=== PATIENT | female | born 1950 | race Caucasian/White ===

== ENCOUNTER 2019-07-09 09:24 | Observation (INO) | payer OTHER ==
[2019-07-07 11:58] LABS: APPEARANCE,URINE Clear (CLEAR); BILIRUBIN,URINE Small (NEGATIVE); COLOR,URINE Dark Yellow (YELLOW); GLUCOSE, URINE (UA) Negative (NEGATIVE); KETONES,URINE Trace mg/dL (NEGATIVE); LEUKOCYTE ESTERASE ,URINE Small (NEGATIVE); NITRATE,URINE Negative (NEGATIVE); OCCULT BLOOD,URINE Negative (NEGATIVE); PH,URINE 6.5 (5.0-8.0); PROTEIN,URINE Negative (NEGATIVE)
[2019-07-07 11:59] VITALS: BP 114/68
[2019-07-07 12:10] LABS: INR 0.95 (0.85-1.15)
[2019-07-07 12:17] LABS: BACTERIA,URINE Rare /HPF (None Seen); MUCUS,URINE Few LPF (None Seen); RBC,URINE 0-1 /HPF (0-1); SQUAMOUS EPITHELIAL CELL,UR Rare /HPF (0-2)
--- NOTE | 2019-07-08 15:40 | NUR ---
RE: ABNORMAL URINALYSIS REPORTED URINE RESULTS TO Suzan WAGNER, RECEIVED ORDERS FOR GENTAMICIN 240MG IV TO BE GIVEN IN OR HOLDING.
[~2019-07-09] VITALS: Ht 157.5 cm; Wt 78.3 kg
[2019-07-09] VITALS (19 sets, daily range): BP systolic 111–132; BP diastolic 63–80
[2019-07-09] MEDS: CEFAZOLIN SODIUM 1 GM VIAL IVP SCH ×3 (06:00→20:57)
[~2019-07-09 09:24] MED LIST: GENTAMICIN SULFATE 240 MG in SODIUM CHLORIDE 0.9% 100 ML IV SCH
[2019-07-09] MEDS ORDERED: LACTATED RINGERS 1000ML 1,000 ML IV ONE (10:22)
[2019-07-09] MEDS ORDERED: METOCLOPRAMIDE 10 MG/2 ML VIAL ONE (11:06)
[2019-07-09] MEDS ORDERED: ACETAMINOPHEN EXTRA STRENGTH 500 MG TABLET ONE (11:07)
[2019-07-09] MEDS ORDERED: CELECOXIB 200 MG CAP ONE (11:07)
[2019-07-09] MEDS ORDERED: KETOROLAC TROMETHAMINE 15MG/ML ONE (11:07)
--- NOTE | 2019-07-09 11:22 | NUR ---
PAIN NO PAIN AT REST ,RIGHT KNEE PAIN WHEN AMBULATING Addendum: 07/09/19 at 1124 by CHLOE CUI RN RN Amended: Links added.
[2019-07-09] MEDS ORDERED: LISI1TAB32 PO (11:34)
[2019-07-09] MEDS ORDERED: ALLO100T PO (11:35)
[2019-07-09] MEDS ORDERED: PRAV10TA39 PO (11:36)
[2019-07-09] MEDS ORDERED: TRANEXAMIC ACID 1000MG/10ML ONE ×2 (13:45→16:42)
[2019-07-09] MEDS ORDERED: CEFAZOLIN SODIUM 1 GM VIAL ONE ×2 (13:45→13:48)
[2019-07-09] MEDS ORDERED: DEXAMETHASONE SOD PHOSPHATE 10MG/ML 1ML VIAL ONE (13:53)
[2019-07-09] MEDS ORDERED: ONDANSETRON HCL 4 MG/2 ML VIAL ONE (13:53)
[2019-07-09] MEDS ORDERED: LIDOCAINE PF 2% 5ML ABBOJECT ONE (13:53)
[2019-07-09] MEDS ORDERED: PROPOFOL 10 MG/ML 20ML VIAL IV ONE (13:53)
[2019-07-09] MEDS ORDERED: FENTANYL CITRATE PF 50 MCG/1 ML 2ML VIAL ONE ×2 (13:54→15:26)
[2019-07-09] MEDS ORDERED: MIDAZOLAM HCL 1 MG/ML 2ML VIAL ONE (13:54)
[2019-07-09] MEDS ORDERED: ROCURONIUM 10MG/1ML SYR 10 MG/ML ML ONE (13:54)
[2019-07-09] MEDS ORDERED: ROPIVACAINE 0.5% 5MG/ML 30ML IJ ONE (14:32)
[2019-07-09] MEDS ORDERED: EPHEDRINE SULFATE 50 MG/ML AMPULE ONE (14:33)
[2019-07-09] MEDS: SODIUM CHLORIDE 0.9% 1000ML 1,000 ML IV SCH (16:24)
[2019-07-09] MEDS ORDERED: POTASSIUM CHLORIDE 20 MEQ ERTAB PO PRN (16:30)
[2019-07-09] MEDS ORDERED: POTASSIUM CHLORIDE 10% ELIXIR 20 MEQ/15 ML UDCUP PO PRN (16:30)
[2019-07-09] MEDS ORDERED: CALCIUM CARBONATE 500 MG TABLET PO PRN (16:30)
[2019-07-09] MEDS ORDERED: ONDANSETRON HCL 4 MG/2 ML VIAL IVP PRN (16:30)
[2019-07-09] MEDS ORDERED: KETOROLAC TROMETHAMINE 15MG/ML IV PRN (16:30)
[2019-07-09] MEDS ORDERED: TEMAZEPAM 15 MG CAPSULE PO PRN (16:30)
[2019-07-09] MEDS ORDERED: TRAMADOL HCL 50 MG TABLET PO PRN (16:30)
[2019-07-09] MEDS ORDERED: FERROUS FUMARATE 324 MG TABLET PO PRN (16:30)
[2019-07-09] MEDS ORDERED: DiphenhydrAMINE HCL 50 MG/ML VIAL IVP PRN (16:30)
[2019-07-09] MEDS ORDERED: POTASSIUM CHLORIDE 20MEQ/100ML 100 ML IV PRN (16:30)
[2019-07-09] MEDS ORDERED: OXYCODONE HCL 5 MG TAB PO PRN ×2 (16:30)
[2019-07-09] MEDS: ACETAMINOPHEN EXTRA STRENGTH 500 MG TABLET PO SCH (16:30)
[2019-07-09] MEDS ORDERED: LIDOCAINE HCL-MPF 1% 2ML VIAL IV PRN (16:30)
[2019-07-09] MEDS ORDERED: NEOSTIGMINE 5MG/5ML SYR IV ONE (16:46)
[2019-07-09] MEDS ORDERED: GLYCOPYRROLATE 1 MG/5 ML SYRINGE ONE (16:46)
[2019-07-09] MEDS ORDERED: MORPHINE SULFATE 4 MG/1ML SYG ONE (18:04)
[2019-07-09] MEDS: CELECOXIB 200 MG CAP PO SCH (20:27)
[2019-07-09] MEDS: ASPIRIN 81MG TAB.CHEW PO SCH (20:27)
[2019-07-09] MEDS: PREGABALIN 25 MG CAP PO SCH (20:28)
[2019-07-09] MEDS: FAMOTIDINE 20MG TAB 20 MG TAB PO SCH (20:29)
[2019-07-10] MEDS: ACETAMINOPHEN EXTRA STRENGTH 500 MG TABLET PO SCH ×2 (00:23→08:27)
[2019-07-10] MEDS: SODIUM CHLORIDE 0.9% 1000ML 1,000 ML IV SCH (02:24)
[2019-07-10 03:22] VITALS: BP 102/58
[2019-07-10 03:56] LABS: HEMATOCRIT 32.9 % (36-48); MEAN CORPUSCULAR HEMOGLOBIN 30.5 pg (27.0-33.0); MEAN CORPUSCULAR HGB CONC 33.1 g/dL (32.0-36.0); MEAN CORPUSCULAR VOLUME 92.2 fL (79-99); PLATELET COUNT (AUTO) 212 K/uL (130-400); RED BLOOD CELL COUNT(AUTO) 3.57 MIL/uL (4.00-5.50); RED CELL DISTRIBUTION WIDTH 13.5 % (11.0-15.5); WHITE BLOOD COUNT (AUTO) 10.1 K/uL (4.8-10.8)
[2019-07-10 04:08] LABS: CREATININE 0.7 mg/dL (0.5-1.5); POTASSIUM 4.3 mmol/L (3.5-5.1)
[2019-07-10] MEDS: CEFAZOLIN SODIUM 1 GM VIAL IVP SCH (04:59)
[2019-07-10 08:00] VITALS: BP 117/66
[2019-07-10] MEDS: PREGABALIN 25 MG CAP PO SCH (08:25)
[2019-07-10] MEDS: CELECOXIB 200 MG CAP PO SCH (08:26)
[2019-07-10] MEDS: ASPIRIN 81MG TAB.CHEW PO SCH (08:26)
[2019-07-10] MEDS: FAMOTIDINE 20MG TAB 20 MG TAB PO SCH (08:26)
[2019-07-10] MEDS ORDERED: LISINOPRIL 10 MG TABLET PO SCH (09:00)
[2019-07-10] MEDS ORDERED: LEVOFLOXACIN 500 MG TABLET PO SCH (09:00)
[2019-07-10] MEDS ORDERED: Pravastatin Sodium 10 MG PO SCH (09:00)
[2019-07-10] MEDS ORDERED: POLYETHYLENE GLYCOL 3350 17 GM POWD.PACK PO SCH (09:00)
[2019-07-10] MEDS ORDERED: ALLOPURINOL 100 MG TABLET PO SCH (09:00)
[2019-07-10 11:10] VITALS: BP 101/61
--- NOTE | 2019-07-10 12:23 | NUR ---
INITIAL Patient lives with spouse, Ashish Felix, [phone]. No home services. DME: [facility], shower chair. Patient was able to complete ADL's independently prior to being hospitalized. Patient does not drive. PCP is Dr. Kati Arevalo. Pharmacy is [facility] located on [address] [facility] in [place]. DCP is home with Addendum: 07/10/19 at 1225 by DAXA PEREZ SS Amended: Links added.
--- NOTE | 2019-07-10 12:25 | NUR ---
Home Health and DME MD order for home health with [facility]. [facility] completed and in chart. MD order for standard walker and 3 in 1 chair. Referral sent to [facility] and [facility]. Pending acceptance.
[2019-07-10] MEDS ORDERED: HYDR-4457 PO (13:33)
[2019-07-10] MEDS ORDERED: ASPI-1005 PO (13:33)
[2019-07-10] MEDS ORDERED: MACR100 PO (13:33)
--- NOTE | 2019-07-10 16:18 | NUR ---
[id number] patient signed JAMES Letter(2 female family members at bedside), I faxed JAMES Letter to [phone] and placed in chart under consent tab
--- NOTE | 2019-07-10 16:20 | NUR ---
INSTRUCTIONS DISCHARGE INSTRUCTIONS GIVEN TO PATIENT AND FAMILY USING TEACH BACK. IV REMOVED WITH TIP INTACT. DIRECT PRESSURE APPLIED UNTIL BLEEDING CONTROLLED THEN SITE COVERED WITH GAUZE AND SECURED WITH TAPE. F/U APPOINTMENT MADE. REPORT CALLED IN TO [facility]. THEY WILL SEE THE PATIENT ON SUNDAY. NEW PRESCRIPTIONS PLACED IN PACKET ALONG WITH ALL PRINTED INFORMATION AND MD INSTRUCTIONS. NO QUESTIONS OR CONCERNS VOICED.
--- NOTE | 2019-07-10 16:22 | NUR ---
CM NOTE PATIENT APPROVED FOR [facility], PRIMARY NURSE, NEISHA MASON, MADE AWARE.
[2019-07-12] MEDS ORDERED: BISACODYL 10 MG SUPP.RECT RC PRN (16:30)
== END 2019-07-10 17:10 | disposition home health service (06) ==
LOC: DAH 09:24 → DAHIP 09:25 → 4AH 17:22
PROVIDERS: ADMIT Orthopaedic Surgery; ATTEND Orthopaedic Surgery
DX: M17.11 Unilateral primary osteoarthritis, right knee (principal); I10 Essential (primary) hypertension; M06.9 Rheumatoid arthritis, unspecified; I70.0 Atherosclerosis of aorta; Z90.49 Acquired absence of other specified parts of digestive tract; Z98.51 Tubal ligation status; Z87.891 Personal history of nicotine dependence
CPT/HCPCS: 27447; 36415 ×2; 80048; 81001; 85027; 85610; 87641; 96365; 96375; 96376; 97039; 97116 ×2; 97161; 97530 ×2; A4213; A4215; A4221; A4222; A4223; A4600; A4649 ×3; A4663; A4930; A9272; C1776; G0378 ×15; G8978; G8979; G8980; G8981; G8982; G8983; J0690 ×5; J1100; J1580; J1885 ×2; J2001; J2250; J2270; J2405; J2704; J2710; J2765; J2795; J3010 ×2; J3490 ×4; J7120 ×2; 96374

== ENCOUNTER 2020-01-05 16:27 | Inpatient (IN) | payer OTHER ==
[~2020-01-05] VITALS: Ht 157.5 cm; Wt 80.9 kg
[~2020-01-05 16:27] MED LIST changes: +ALLO100T PO; +ASPI-1005 PO; -GENTAMICIN SULFATE 240 MG in SODIUM CHLORIDE 0.9% 100 ML IV SCH; +HYDR-4457 PO; +LISI1TAB32 PO; +MACR100 PO; +PRAV10TA39 PO
[2020-01-05] MEDS: ENOXAPARIN SODIUM 30 MG/0.3 ML SQ SCH (17:30)
[2020-01-05] MEDS ORDERED: MORPHINE SULFATE 2 MG/ML 1ML SYG ONE (17:31)
[2020-01-05] MEDS ORDERED: ONDANSETRON HCL 4 MG/2 ML VIAL ONE (17:31)
[2020-01-05 17:34] LABS: BASOPHILS % (AUTO) 0.5 % (0.0-5.0); EOSINOPHILS % (AUTO) 1.8 % (0.0-8.0); HEMATOCRIT 31.8 % (36-48); MEAN CORPUSCULAR HEMOGLOBIN 28.1 pg (27.0-33.0); MEAN CORPUSCULAR HGB CONC 31.8 g/dL (32.0-36.0); MEAN CORPUSCULAR VOLUME 88.6 fL (79-99); MONOCYTES % (AUTO) 7.2 % (3.0-13.0); PLATELET COUNT (AUTO) 318 K/uL (130-400); RED BLOOD CELL COUNT(AUTO) 3.59 MIL/uL (4.00-5.50); RED CELL DISTRIBUTION WIDTH 15.2 % (11.0-15.5); WHITE BLOOD COUNT (AUTO) 8.2 K/uL (4.8-10.8)
[2020-01-05 17:45] LABS: CREATININE 0.7 mg/dL (0.5-1.5); POTASSIUM 4.2 mmol/L (3.5-5.1)
[2020-01-05] MEDS ORDERED: ONDANSETRON HCL 4 MG/2 ML VIAL IVP PRN (17:45)
[2020-01-05] MEDS ORDERED: ACETAMINOPHEN 325 MG TAB PO PRN (17:45)
[2020-01-05] MEDS ORDERED: MORPHINE SULFATE 2 MG/ML 1ML SYG IVP PRN (17:45)
[2020-01-05] MEDS ORDERED: SODIUM CHLORIDE 0.9% 1000ML 1,000 ML IV SCH (17:45)
[2020-01-05] MEDS ORDERED: HYDROCODONE/ACETAMINOPHEN 5/325 MG TAB PO PRN (17:45)
[2020-01-05 17:47] LABS: INR 0.92 (0.85-1.15); PARTIAL THROMBOPLASTIN TIME 28.2 SEC (26.3-35.5)
[2020-01-05 17:49] LABS: ALBUMIN 3.2 g/dL (3.5-5.0); BILIRUBIN,TOTAL 0.5 mg/dL (0.2-1.0); TOTAL PROTEIN, SERUM 6.8 g/dL (6.0-8.3)
[2020-01-05] MEDS ORDERED: ALLOPURINOL 100 MG TABLET PO SCH (18:00)
[2020-01-05 18:03] LABS: APPEARANCE,URINE SL CLOUDY (CLEAR); BILIRUBIN,URINE MODERATE (NEGATIVE); COLOR,URINE YELLOW (YELLOW); GLUCOSE, URINE (UA) NEGATIVE (NEGATIVE); KETONES,URINE 15 mg/dL (NEGATIVE); LEUKOCYTE ESTERASE ,URINE TRACE (NEGATIVE); NITRATE,URINE NEGATIVE (NEGATIVE); OCCULT BLOOD,URINE NEGATIVE (NEGATIVE); PROTEIN,URINE 30 mg/dL (NEGATIVE)
[2020-01-05 18:14] LABS: BACTERIA,URINE Few /HPF (None Seen); RBC,URINE 0-1 /HPF (0-1)
[2020-01-05 18:15] LABS: MUCUS,URINE Moderate LPF (None Seen); SQUAMOUS EPITHELIAL CELL,UR Few /HPF (0-2)
[2020-01-05] MEDS ORDERED: ENOXAPARIN SODIUM 30 MG/0.3 ML SQ ONE (21:10)
[2020-01-05 23:20] VITALS: BP 128/77
[2020-01-06] MEDS: HYDROCODONE/ACETAMINOPHEN 5/325 MG TAB PO PRN ×2 (00:07→11:01)
[2020-01-06 03:40] VITALS: BP 119/77
[2020-01-06 03:43] LABS: HEMATOCRIT 27.8 % (36-48); MEAN CORPUSCULAR HEMOGLOBIN 28.4 pg (27.0-33.0); MEAN CORPUSCULAR VOLUME 88.8 fL (79-99); RED BLOOD CELL COUNT(AUTO) 3.13 MIL/uL (4.00-5.50); RED CELL DISTRIBUTION WIDTH 15.1 % (11.0-15.5); WHITE BLOOD COUNT (AUTO) 6.8 K/uL (4.8-10.8)
[2020-01-06 03:57] LABS: INR 0.93 (0.85-1.15); PARTIAL THROMBOPLASTIN TIME 31.8 SEC (26.3-35.5); PROTHROMBIN TIME 10.1 SEC (9.6-11.6)
[2020-01-06 04:03] LABS: ALBUMIN 2.7 g/dL (3.5-5.0); BILIRUBIN,TOTAL 0.4 mg/dL (0.2-1.0); CREATININE 0.7 mg/dL (0.5-1.5); POTASSIUM 3.8 mmol/L (3.5-5.1); TOTAL PROTEIN, SERUM 6.1 g/dL (6.0-8.3)
[2020-01-06] MEDS: CEFTRIAXONE SODIUM 1 GM IVP SCH ×2 (05:04→17:50)
[2020-01-06 08:41] VITALS: BP 125/73
[2020-01-06] MEDS: HYDROCHLOROTHIAZIDE 25 MG TABLET PO SCH (10:52)
[2020-01-06] MEDS: PANTOPRAZOLE SODIUM 40 MG TABLET.DR PO SCH (10:54)
[2020-01-06] MEDS: ALLOPURINOL 100 MG TABLET PO SCH (10:54)
[2020-01-06] MEDS: LISINOPRIL 20 MG TABLET PO SCH (10:55)
[2020-01-06] MEDS: ENOXAPARIN SODIUM 30 MG/0.3 ML SQ SCH (10:56)
[2020-01-06 11:46] VITALS: BP 116/61
[2020-01-06 16:46] VITALS: BP 119/72
[2020-01-06 20:08] VITALS: BP 128/75
[2020-01-07] VITALS (22 sets, daily range): BP systolic 105–152; BP diastolic 63–89
[2020-01-07 04:38] LABS: CREATININE 0.6 mg/dL (0.5-1.5); POTASSIUM 3.7 mmol/L (3.5-5.1)
[2020-01-07 04:59] LABS: HEMATOCRIT 27.9 % (36-48); MEAN CORPUSCULAR HEMOGLOBIN 28.3 pg (27.0-33.0); MEAN CORPUSCULAR HGB CONC 31.9 g/dL (32.0-36.0); MEAN CORPUSCULAR VOLUME 88.6 fL (79-99); PLATELET COUNT (AUTO) 324 K/uL (130-400); RED BLOOD CELL COUNT(AUTO) 3.15 MIL/uL (4.00-5.50); WHITE BLOOD COUNT (AUTO) 6.4 K/uL (4.8-10.8)
[2020-01-07 05:17] LABS: BAND NEUTROPHILS % (MANUAL) 5 % (0-2); EOSINOPHILS % (MANUAL) 1 % (1-6); LYMPHOCYTES % (MANUAL) 26 % (22-44); MAN.DIFF COMMENT-IMPRESSION MANUAL DIFFERENTIAL; MONOCYTES % (MANUAL) 1 % (2-9); PLATELET MORPHOLOGY COMMENT ADEQUATE; REACTIVE LYMPHOCYTES 1 % (0-0); SEGMENTED NEUTROPHILS % 66 % (40-70)
[2020-01-07] MEDS: CEFTRIAXONE SODIUM 1 GM IVP SCH ×2 (06:25→17:00)
[2020-01-07] MEDS: PANTOPRAZOLE SODIUM 40 MG TABLET.DR PO SCH (09:00)
[2020-01-07] MEDS: LISINOPRIL 20 MG TABLET PO SCH (09:00)
[2020-01-07] MEDS: ALLOPURINOL 100 MG TABLET PO SCH (09:00)
[2020-01-07] MEDS: HYDROCHLOROTHIAZIDE 25 MG TABLET PO SCH (09:00)
[2020-01-07] MEDS ORDERED: TRANEXAMIC ACID 1000MG/10ML ONE ×2 (16:52→21:21)
[2020-01-07] MEDS ORDERED: LIDOCAINE PF 2% 5ML ABBOJECT ONE (16:59)
[2020-01-07] MEDS ORDERED: PROPOFOL 10 MG/ML 20ML VIAL IV ONE (16:59)
[2020-01-07] MEDS ORDERED: KETAMINE 50MG/ML SYRINGE 50 MG/ML DISP.SYRIN IV ONE (17:01)
[2020-01-07] MEDS ORDERED: LIDOCAINE HCL 1% 20 ML VIAL ONE (17:01)
[2020-01-07] MEDS ORDERED: SUCCINYLCHOLINE CHLORIDE 20 MG/ML 10 ML VIAL ONE (17:02)
[2020-01-07] MEDS ORDERED: ROPIVACAINE 0.5% 5MG/ML 30ML IJ ONE (17:05)
[2020-01-07] MEDS: CEFAZOLIN SODIUM 1 GM VIAL ONE ×3 (17:10→20:00)
[2020-01-07] MEDS ORDERED: FENTANYL CITRATE PF 50 MCG/1 ML 2ML VIAL ONE (18:29)
[2020-01-07] MEDS ORDERED: PHENYLEPHRINE HCL 10 MG/ML 1ML VIAL IV ONE (18:46)
[2020-01-07] MEDS ORDERED: ROCURONIUM 10MG/1ML SYR 10 MG/ML ML ONE (19:27)
[2020-01-07] MEDS ORDERED: NEOSTIGMINE 5MG/5ML SYR IV ONE (19:56)
[2020-01-07] MEDS ORDERED: GLYCOPYRROLATE 1 MG/5 ML SYRINGE ONE (19:56)
[2020-01-07] MEDS: SODIUM CHLORIDE 0.9% 1000ML 1,000 ML IV SCH ×2 (20:25→21:00)
[2020-01-07] MEDS ORDERED: LIDOCAINE HCL-MPF 1% 2ML VIAL IV PRN (20:30)
[2020-01-07] MEDS ORDERED: POTASSIUM CHLORIDE 10% ELIXIR 20 MEQ/15 ML UDCUP PO PRN (20:30)
[2020-01-07] MEDS ORDERED: POTASSIUM CHLORIDE 20MEQ/100ML 100 ML IV PRN (20:30)
[2020-01-07] MEDS: ACETAMINOPHEN EXTRA STRENGTH 500 MG TABLET PO SCH (20:30)
[2020-01-07] MEDS ORDERED: DiphenhydrAMINE HCL 50 MG/ML VIAL IVP PRN (20:30)
[2020-01-07] MEDS ORDERED: TEMAZEPAM 15 MG CAPSULE PO PRN (20:30)
[2020-01-07] MEDS ORDERED: CALCIUM CARBONATE 500 MG TABLET PO PRN (20:30)
[2020-01-07] MEDS ORDERED: TRAMADOL HCL 50 MG TABLET PO PRN (20:30)
[2020-01-07] MEDS ORDERED: ONDANSETRON HCL 4 MG/2 ML VIAL IVP PRN (20:30)
[2020-01-07] MEDS ORDERED: OXYCODONE HCL 5 MG TAB PO PRN (20:30)
[2020-01-07] MEDS ORDERED: ALBUTEROL INHALER 90MCG/INH IH ONE (20:38)
[2020-01-07] MEDS ORDERED: PHARMACY COMMUNICATION MISC SCH (20:45)
[2020-01-07] MEDS ORDERED: METOCLOPRAMIDE 10 MG/2 ML VIAL ONE (20:57)
[2020-01-07] MEDS: FAMOTIDINE 20MG TAB 20 MG TAB PO SCH (21:00)
[2020-01-07] MEDS ORDERED: MEPERIDINE-PF 25 MG/ML SYG ONE (21:15)
[2020-01-07] MEDS: ONDANSETRON HCL 4 MG/2 ML VIAL IVP SCH (21:33)
[2020-01-07] MEDS ORDERED: FAMOTIDINE/PF 20 MG/2 ML VIAL IV ONE (21:41)
[2020-01-07] MEDS: KETOROLAC TROMETHAMINE 15MG/ML IM SCH (22:20)
[2020-01-08] VITALS (9 sets, daily range): BP systolic 98–136; BP diastolic 62–80
[2020-01-08] MEDS: OXYCODONE HCL 5 MG TAB PO PRN ×3 (00:01→20:45)
[2020-01-08] MEDS: CEFAZOLIN SODIUM 1 GM VIAL IVP SCH ×2 (03:27→09:58)
[2020-01-08] MEDS: ACETAMINOPHEN EXTRA STRENGTH 500 MG TABLET PO SCH ×3 (03:30→20:30)
[2020-01-08 03:55] LABS: BASOPHILS % (AUTO) 0.3 % (0.0-5.0); EOSINOPHILS % (AUTO) 0.1 % (0.0-8.0); HEMATOCRIT 27.4 % (36-48); LYMPHOCYTES % (AUTO) 10.7 % (21.0-51.0); MEAN CORPUSCULAR HEMOGLOBIN 27.9 pg (27.0-33.0); MEAN CORPUSCULAR HGB CONC 31.4 g/dL (32.0-36.0); MONOCYTES % (AUTO) 7.8 % (3.0-13.0); NEUTROPHILS % (AUTO) 79.7 % (40.0-77.0); PLATELET COUNT (AUTO) 311 K/uL (130-400); RED BLOOD CELL COUNT(AUTO) 3.08 MIL/uL (4.00-5.50); RED CELL DISTRIBUTION WIDTH 15.2 % (11.0-15.5); WHITE BLOOD COUNT (AUTO) 10.1 K/uL (4.8-10.8)
[2020-01-08 04:08] LABS: CREATININE 0.7 mg/dL (0.5-1.5); POTASSIUM 4.1 mmol/L (3.5-5.1)
[2020-01-08] MEDS: SODIUM CHLORIDE 0.9% 1000ML 1,000 ML IV SCH ×2 (06:25→16:25)
[2020-01-08] MEDS: KETOROLAC TROMETHAMINE 15MG/ML IV PRN ×2 (07:23→13:31)
[2020-01-08] MEDS: FAMOTIDINE 20MG TAB 20 MG TAB PO SCH ×2 (10:10→20:44)
[2020-01-08] MEDS: LISINOPRIL 20 MG TABLET PO SCH (10:11)
[2020-01-08] MEDS: APIXABAN 2.5 MG TABLET PO SCH ×2 (10:11→20:44)
[2020-01-08] MEDS: ALLOPURINOL 100 MG TABLET PO SCH (10:11)
[2020-01-08] MEDS: HYDROCHLOROTHIAZIDE 25 MG TABLET PO SCH (10:11)
[2020-01-08] MEDS: CELECOXIB 200 MG CAP PO SCH ×3 (10:12→20:44)
[2020-01-08] MEDS: POLYETHYLENE GLYCOL 3350 17 GM POWD.PACK PO SCH (10:12)
--- NOTE | 2020-01-08 13:08 | NUR ---
INITIAL ASSESSMENT- SPOKE WITH PT AND MARTHA SPOKE W PATIENT AT BEDSIDE- STATES LIVES W/ SPOUSE MARAL & DAUGHTER SAMIR STATES DAUGHTER HELPS HER AND PROVIDES TRANSPORT; HAS SHOWER CHAIR AND WALKER. NO CURRENT PROVIDER NOR HOME HEALTH. CALLED TO DAUGHTER SAMIR AND CONFIRMED INFORMATION ADVISED DTR THAT PTx RECOMMENDED SNF; PT DECLINE,D FAMILY DECLINING WELL. PATIENT Addendum: 01/08/20 at 1347 by RYAN JETER RN CM Amended: Links added.
[2020-01-08] MEDS: ONDANSETRON HCL 4 MG/2 ML VIAL IVP SCH (21:15)
[2020-01-08] MEDS: KETOROLAC TROMETHAMINE 15MG/ML IM SCH (22:15)
[2020-01-09 00:29] VITALS: BP 94/63
[2020-01-09] MEDS: ACETAMINOPHEN EXTRA STRENGTH 500 MG TABLET PO SCH ×3 (04:13→20:54)
[2020-01-09 04:35] VITALS: BP 105/66
[2020-01-09 07:08] LABS: BASOPHILS % (AUTO) 0.6 % (0.0-5.0); EOSINOPHILS % (AUTO) 3.5 % (0.0-8.0); HEMATOCRIT 24.7 % (36-48); LYMPHOCYTES % (AUTO) 12.9 % (21.0-51.0); MEAN CORPUSCULAR HEMOGLOBIN 27.9 pg (27.0-33.0); MEAN CORPUSCULAR HGB CONC 31.6 g/dL (32.0-36.0); MEAN CORPUSCULAR VOLUME 88.2 fL (79-99); MONOCYTES % (AUTO) 8.4 % (3.0-13.0); NEUTROPHILS % (AUTO) 73.6 % (40.0-77.0); PLATELET COUNT (AUTO) 298 K/uL (130-400); WHITE BLOOD COUNT (AUTO) 8.6 K/uL (4.8-10.8)
[2020-01-09 07:19] LABS: CREATININE 0.7 mg/dL (0.5-1.5); POTASSIUM 3.6 mmol/L (3.5-5.1)
[2020-01-09 08:34] VITALS: BP 107/62
[2020-01-09] MEDS: LISINOPRIL 20 MG TABLET PO SCH (09:00)
[2020-01-09] MEDS: HYDROCHLOROTHIAZIDE 25 MG TABLET PO SCH (09:00)
[2020-01-09] MEDS: POLYETHYLENE GLYCOL 3350 17 GM POWD.PACK PO SCH (09:18)
[2020-01-09] MEDS: APIXABAN 2.5 MG TABLET PO SCH ×2 (09:19→20:54)
[2020-01-09] MEDS: FAMOTIDINE 20MG TAB 20 MG TAB PO SCH ×2 (09:19→20:53)
[2020-01-09] MEDS: ALLOPURINOL 100 MG TABLET PO SCH (09:19)
[2020-01-09] MEDS: CELECOXIB 200 MG CAP PO SCH ×2 (09:20→20:54)
[2020-01-09] MEDS: OXYCODONE HCL 5 MG TAB PO PRN ×2 (09:21→16:26)
[2020-01-09 11:25] VITALS: BP 103/49
--- NOTE | 2020-01-09 14:00 | NUR ---
HOME W/ [facility] DISCUSSED W DR. WAGNER [facility] TRANSPORT- STATES PATIENT COULD BE TRANSPORTED BY PRIVATE VEHICLE WHEN READY TO DISCHARGE. SPOEK TO DTR [facility]IR [facility]- DOES NOT WANT. PLAN ROBBIE Rodriguez DC TOMORROW Addendum: 01/09/20 at 1944 by RYAN JETER RN CM Amended: Links added.
[2020-01-09] MEDS ORDERED: SODIUM CHLORIDE 0.9% 250 ML IV ONE (15:08)
[2020-01-09] MEDS: FERROUS FUMARATE 324 MG TABLET PO PRN (16:13)
[2020-01-09 17:27] VITALS: BP 115/63
[2020-01-09 20:12] VITALS: BP 123/76
--- NOTE | 2020-01-09 22:00 | NUR ---
NOTE TRIED TO WEAN OFF O2. AFTER A FEW MINUTE SON ROOM AIR CHECKED O2 SAT AND IT WAS 88%. PLACED BACK ON O2 2L N/C. PATIENT DENIES SOB OR DIFFICULTIES WITH BREATHING. SAT ON O2 98%.
[2020-01-10 00:12] VITALS: BP 132/69
[2020-01-10] MEDS: ACETAMINOPHEN EXTRA STRENGTH 500 MG TABLET PO SCH ×3 (03:40→21:11)
[2020-01-10 04:12] VITALS: BP 117/60
[2020-01-10 05:18] LABS: BASOPHILS % (AUTO) 0.6 % (0.0-5.0); EOSINOPHILS % (AUTO) 5.5 % (0.0-8.0); LYMPHOCYTES % (AUTO) 19.7 % (21.0-51.0); MEAN CORPUSCULAR HEMOGLOBIN 27.6 pg (27.0-33.0); MEAN CORPUSCULAR HGB CONC 31.9 g/dL (32.0-36.0); MEAN CORPUSCULAR VOLUME 86.4 fL (79-99); MONOCYTES % (AUTO) 11.4 % (3.0-13.0); NEUTROPHILS % (AUTO) 60.2 % (40.0-77.0); NUCLEATED RED BLOOD CELLS 0.3 % (0.0-0.19); PLATELET COUNT (AUTO) 314 K/uL (130-400); RED BLOOD CELL COUNT(AUTO) 3.01 MIL/uL (4.00-5.50); RED CELL DISTRIBUTION WIDTH 16.2 % (11.0-15.5); WHITE BLOOD COUNT (AUTO) 6.9 K/uL (4.8-10.8)
[2020-01-10 05:39] LABS: CREATININE 0.7 mg/dL (0.5-1.5); POTASSIUM 3.5 mmol/L (3.5-5.1)
[2020-01-10] MEDS: FAMOTIDINE 20MG TAB 20 MG TAB PO SCH ×2 (08:12→21:10)
[2020-01-10] MEDS: CELECOXIB 200 MG CAP PO SCH ×2 (08:12→21:10)
[2020-01-10] MEDS: FERROUS FUMARATE 324 MG TABLET PO PRN (08:13)
[2020-01-10] MEDS: APIXABAN 2.5 MG TABLET PO SCH (08:13)
[2020-01-10] MEDS: POLYETHYLENE GLYCOL 3350 17 GM POWD.PACK PO SCH (08:13)
[2020-01-10] MEDS: POTASSIUM CHLORIDE 20 MEQ ERTAB PO PRN ×2 (08:13→15:47)
[2020-01-10] MEDS: OXYCODONE HCL 5 MG TAB PO PRN (08:14)
[2020-01-10 08:26] VITALS: BP 123/71
[2020-01-10] MEDS: ALLOPURINOL 100 MG TABLET PO SCH (08:31)
[2020-01-10] MEDS: HYDROCHLOROTHIAZIDE 25 MG TABLET PO SCH (09:00)
[2020-01-10] MEDS: LISINOPRIL 20 MG TABLET PO SCH (09:00)
[2020-01-10] MEDS ORDERED: BISACODYL 10 MG SUPP.RECT RC ONE (10:28)
[2020-01-10 11:37] VITALS: BP 112/63
[2020-01-10 16:21] VITALS: BP 111/65
--- NOTE | 2020-01-10 16:39 | NUR ---
i have called dr ramirez with results of ct scan--small right pleural effusion and multifocal pneumonia; i have also given pt 2 doses of 20 meq kcl per potassium protocol for a lv 3.5; will cont to monitor
[2020-01-10] MEDS ORDERED: MEROPENEM 500 MG VIAL IVP SCH (16:45)
[2020-01-10] MEDS ORDERED: LINEZOLID 600 MG/ISO-OSM 300 ML IV SCH (16:45)
--- NOTE | 2020-01-10 17:16 | NUR ---
i spoke to dr warren in regards to meeting [facility] protocol and he stated that if pt did not meet criteria to receive then have the hospitalist take care of the abx; i attempted to call AJ and got his voice mail and left a message; pending call back
[2020-01-10] MEDS ORDERED: CEFTRIAXONE SODIUM 1 GM IVP SCH (17:30)
[2020-01-10] MEDS: AZITHROMYCIN 500MG+NS 250ML 250 ML IV SCH (18:14)
[2020-01-10 20:08] VITALS: BP 125/69
[2020-01-10] MEDS ORDERED: BISACODYL 10 MG SUPP.RECT RC PRN (20:30)
[2020-01-10] MEDS: CEFEPIME HCL 2 GM VIAL IVP SCH (22:45)
[2020-01-11 00:08] VITALS: BP 118/63
[2020-01-11 04:08] VITALS: BP 125/75
[2020-01-11 04:17] LABS: HEMATOCRIT 27.2 % (36-48); MEAN CORPUSCULAR HEMOGLOBIN 27.2 pg (27.0-33.0); MEAN CORPUSCULAR HGB CONC 31.3 g/dL (32.0-36.0); MEAN CORPUSCULAR VOLUME 86.9 fL (79-99); PLATELET COUNT (AUTO) 373 K/uL (130-400); RED BLOOD CELL COUNT(AUTO) 3.13 MIL/uL (4.00-5.50); RED CELL DISTRIBUTION WIDTH 16.1 % (11.0-15.5); WHITE BLOOD COUNT (AUTO) 6.8 K/uL (4.8-10.8)
[2020-01-11 04:20] LABS: CREATININE 0.6 mg/dL (0.5-1.5); POTASSIUM 3.8 mmol/L (3.5-5.1)
[2020-01-11] MEDS: CEFEPIME HCL 2 GM VIAL IVP SCH ×3 (04:49→22:27)
[2020-01-11] MEDS: ACETAMINOPHEN EXTRA STRENGTH 500 MG TABLET PO SCH ×3 (04:53→20:51)
[2020-01-11 06:29] LABS: BAND NEUTROPHILS % (MANUAL) 1 % (0-2); BASOPHILS % (MANUAL) 3 % (0-2); EOSINOPHILS % (MANUAL) 4 % (1-6); LYMPHOCYTES % (MANUAL) 20 % (22-44); MAN.DIFF COMMENT-IMPRESSION MANUAL DIFFERENTIAL; MONOCYTES % (MANUAL) 3 % (2-9); PLATELET MORPHOLOGY COMMENT ADEQUATE; REACTIVE LYMPHOCYTES 3 % (0-0); SEGMENTED NEUTROPHILS % 66 % (40-70)
[2020-01-11 08:13] VITALS: BP 116/63
[2020-01-11] MEDS: FAMOTIDINE 20MG TAB 20 MG TAB PO SCH ×2 (09:00→20:50)
[2020-01-11] MEDS: ALLOPURINOL 100 MG TABLET PO SCH (09:00)
[2020-01-11] MEDS: LISINOPRIL 20 MG TABLET PO SCH (09:00)
[2020-01-11] MEDS: HYDROCHLOROTHIAZIDE 25 MG TABLET PO SCH (09:00)
[2020-01-11] MEDS: POLYETHYLENE GLYCOL 3350 17 GM POWD.PACK PO SCH (09:00)
[2020-01-11] MEDS: CELECOXIB 200 MG CAP PO SCH ×2 (09:00→20:50)
[2020-01-11] MEDS: OXYCODONE HCL 5 MG TAB PO PRN (09:02)
[2020-01-11] MEDS: FERROUS FUMARATE 324 MG TABLET PO PRN (09:19)
[2020-01-11 11:33] VITALS: BP 114/68
[2020-01-11 16:01] VITALS: BP 113/68
[2020-01-11] MEDS: AZITHROMYCIN 500MG+NS 250ML 250 ML IV SCH (18:35)
[2020-01-11 20:12] VITALS: BP 111/72
[2020-01-12] VITALS (7 sets, daily range): BP systolic 122–147; BP diastolic 71–83
[2020-01-12] MEDS: CEFEPIME HCL 2 GM VIAL IVP SCH ×3 (04:29→22:05)
[2020-01-12] MEDS: ACETAMINOPHEN EXTRA STRENGTH 500 MG TABLET PO SCH ×3 (04:30→20:35)
[2020-01-12 06:14] LABS: BASOPHILS % (AUTO) 0.7 % (0.0-5.0); EOSINOPHILS % (AUTO) 6.1 % (0.0-8.0); HEMATOCRIT 26.6 % (36-48); LYMPHOCYTES % (AUTO) 19.9 % (21.0-51.0); MEAN CORPUSCULAR HEMOGLOBIN 27.8 pg (27.0-33.0); MEAN CORPUSCULAR HGB CONC 32.3 g/dL (32.0-36.0); MEAN CORPUSCULAR VOLUME 86.1 fL (79-99); MONOCYTES % (AUTO) 9.4 % (3.0-13.0); NEUTROPHILS % (AUTO) 62.2 % (40.0-77.0); PLATELET COUNT (AUTO) 383 K/uL (130-400); RED BLOOD CELL COUNT(AUTO) 3.09 MIL/uL (4.00-5.50); RED CELL DISTRIBUTION WIDTH 15.9 % (11.0-15.5); WHITE BLOOD COUNT (AUTO) 5.9 K/uL (4.8-10.8)
[2020-01-12 06:32] LABS: CREATININE 0.6 mg/dL (0.5-1.5); POTASSIUM 3.9 mmol/L (3.5-5.1)
[2020-01-12] MEDS: OXYCODONE HCL 5 MG TAB PO PRN ×2 (08:04→20:36)
[2020-01-12] MEDS: LISINOPRIL 20 MG TABLET PO SCH (09:41)
[2020-01-12] MEDS: CELECOXIB 200 MG CAP PO SCH ×2 (09:41→20:34)
[2020-01-12] MEDS: ALLOPURINOL 100 MG TABLET PO SCH (09:41)
[2020-01-12] MEDS: FAMOTIDINE 20MG TAB 20 MG TAB PO SCH ×2 (09:41→20:34)
[2020-01-12] MEDS: POLYETHYLENE GLYCOL 3350 17 GM POWD.PACK PO SCH (09:41)
[2020-01-12] MEDS: HYDROCHLOROTHIAZIDE 25 MG TABLET PO SCH (09:42)
[2020-01-12] MEDS ORDERED: LIDOCAINE HCL-MPF 1% 5ML AMP IJ SCH (16:30)
--- NOTE | 2020-01-12 17:29 | NUR ---
CM Note: [facility] approval CM verified pt has approval for [facility]. Primary nurse aware. CM to cont to follow up.
[2020-01-12 18:08] LABS: TOTAL PROTEIN, SERUM 5.9 g/dL (6.0-8.3)
[2020-01-12] MEDS: AZITHROMYCIN 500MG+NS 250ML 250 ML IV SCH (18:42)
[2020-01-12 21:00] LABS: APPEARANCE BODY FLUID BLOODY (CLEAR); BODY FLUID WBC 739 /cu. mm.; COLOR,BODY FLUID RED (LT YELLOW); SPECIMENTYPE,BODY FLUID PLEURAL; TOTAL VOLUME,BODY FLUID 872 mL
[2020-01-12 21:25] LABS: BF EOSINOPHIL 2 %; BF LYMPHOCYTE 6 %; BF MONOCYTE 2 %; BF OTHER CELLS 15
[2020-01-13] MEDS: OXYCODONE HCL 5 MG TAB PO PRN ×4 (00:57→16:27)
[2020-01-13] MEDS: ACETAMINOPHEN EXTRA STRENGTH 500 MG TABLET PO SCH ×2 (03:43→12:04)
[2020-01-13 03:44] LABS: BASOPHILS % (AUTO) 0.5 % (0.0-5.0); EOSINOPHILS % (AUTO) 5.6 % (0.0-8.0); HEMATOCRIT 26.3 % (36-48); LYMPHOCYTES % (AUTO) 21.8 % (21.0-51.0); MEAN CORPUSCULAR HEMOGLOBIN 27.7 pg (27.0-33.0); MEAN CORPUSCULAR HGB CONC 31.9 g/dL (32.0-36.0); MEAN CORPUSCULAR VOLUME 86.8 fL (79-99); MONOCYTES % (AUTO) 10.6 % (3.0-13.0); NEUTROPHILS % (AUTO) 59.5 % (40.0-77.0); PLATELET COUNT (AUTO) 415 K/uL (130-400); RED BLOOD CELL COUNT(AUTO) 3.03 MIL/uL (4.00-5.50); WHITE BLOOD COUNT (AUTO) 6.6 K/uL (4.8-10.8)
[2020-01-13 03:51] LABS: CREATININE 0.7 mg/dL (0.5-1.5); POTASSIUM 3.6 mmol/L (3.5-5.1)
[2020-01-13 04:00] VITALS: BP 139/84
[2020-01-13] MEDS: CEFEPIME HCL 2 GM VIAL IVP SCH ×2 (05:12→14:00)
[2020-01-13 08:08] VITALS: BP 135/81
[2020-01-13] MEDS ORDERED: APIXABAN 2.5 MG TABLET PO SCH (09:00)
[2020-01-13] MEDS: HYDROCHLOROTHIAZIDE 25 MG TABLET PO SCH (09:28)
[2020-01-13] MEDS: POLYETHYLENE GLYCOL 3350 17 GM POWD.PACK PO SCH (09:29)
[2020-01-13] MEDS: CELECOXIB 200 MG CAP PO SCH (09:29)
[2020-01-13] MEDS: LISINOPRIL 20 MG TABLET PO SCH (09:29)
[2020-01-13] MEDS: FAMOTIDINE 20MG TAB 20 MG TAB PO SCH (09:29)
[2020-01-13] MEDS: ALLOPURINOL 100 MG TABLET PO SCH (09:30)
[2020-01-13 11:28] VITALS: BP 127/76
[2020-01-13] MEDS ORDERED: FERR324T10 PO (13:24)
[2020-01-13] MEDS ORDERED: HYDR-4457 PO (13:24)
[2020-01-13] MEDS ORDERED: LEVO500T2 PO (13:24)
[2020-01-13] MEDS ORDERED: APIX2.5T PO (13:24)
--- NOTE | 2020-01-13 14:49 | NUR ---
RDSCREEN - LOS X 8 Pt admitted for R-Periprosthetic Fracture. Pt tolerating Regular diet order with no report of GI distress. Good PO at 100%. S/p procedure. S/p Thoracentesis as per EMR. Monitored labs: Alb 2.7. Recommend continue Regular diet order RD to continue to monitor.
--- NOTE | 2020-01-13 15:36 | NUR ---
1522 patient signed IM Letter, I faxed IM Letter to [phone] and placed in chart under consent tab.
--- NOTE | 2020-01-13 16:00 | NUR ---
[facility] SPOKE TO [employer] [phone] OF [facility] AND WAS TOLD THAT THEY HAVE NOT RECEIVED HOME HEALTH REFERRAL FROM PATIENT. CALLED [facility] IN [place] AND INFORMED OF THIS.
--- NOTE | 2020-01-13 16:10 | NUR ---
CM Note: [facility] pending response CM spoke to Viktoria w/[facility]. Clarified approval. Informed Viktoria as per [facility] MORRISON pt had approval since 01/08 and received call for acceptance. As per Viktoria she didn't get anything for patient and she didn't speak to anyone for approval. Requested clinicals to be refaxed. Refaxed order and clinicals at this time, confirmation received. As per Viktoria will look at clinicals as soon as received, and will call CM as soon as possible, aware there is DC order today. Primary nurse made aware. CM to continue to follow up.
[2020-01-13 16:22] VITALS: BP 139/76
[2020-01-13] MEDS: AZITHROMYCIN 500MG+NS 250ML 250 ML IV SCH (17:30)
--- NOTE | 2020-01-13 17:55 | NUR ---
REPORT TO [facility] REPORT GIVEN TO NURSE XIE OF [facility] [phone]. INFORMED OF RX (ELIQUIS, FERROUS SULFATE, NORCO 5/325, LEVAQUIN), SCHEDULED F/U APPTS WITH DR. WAGNER AND DR. MCLAUGHLIN, AND DR. WAGNER DISCHARGE ORDERS.
--- NOTE | 2020-01-13 18:00 | NUR ---
DISCHARGE DISCHARGE TEACHING PROVIDED TO PATIENT REGARDING RX (ELIQUIS, NORCO, FERROUS SULFATE, LEVAQUIN), SCHEDULED F/U WITH DR. WAGNER AND DR. MAURICIO, AND REVIEWED MD DISCHARGE ORDERS. RIGHT KNEE INCISIONS CLEAN, DRY AND INTACT. LABELED RIGHT KNEE DRESSING "REMOVE ON 01/15/20". REMOVED 20G IV FROM RIGHT AC, CATHETER TIP INTACT. PATIENT REPORT NO PAIN OR DISCOMFORTS. SPOKE TO PATIENTS DAUGHTER, Maria GuadalupeMaribell OHARA [phone] AND ALSO REVIEWED MD DISCHARGE ORDERS. Belén OHARA ALSO INFORMED ME SHE WAS ABLE TO COUNTER INTELLIGENCE PATIENTS NEW RX AND WILL COUNTER INTELLIGENCE PATIENT TO TRANSPORT HOME.
--- NOTE | 2020-01-14 17:58 | NUR ---
CM Note: [facility] approval CM spoke to Viktoria, approval clarified, pt accepted, nurse can give report. Primary nurse Valentina RODRIGUEZ made aware. Pt safe to DC via private car. CM to cont to follow up. Addendum: 01/15/20 at 1600 by CHARLIE FRANCES LVN CM LATE ENTRY for 01/13/20 @ [id number].
== END 2020-01-13 18:05 | disposition home health service (06) | DRG 466 ==
LOC: EDH 16:27 → EDHIP 16:28 → 3AH 22:15
PROVIDERS: ADMIT Orthopaedic Surgery; ATTEND Orthopaedic Surgery
PROC: 3E0T3BZ Introduction of Anesthetic Agent into Peripheral Nerves and Plexi, Percutaneous Approach (ICD-10-PCS; 2020-01-07)
PROC: 0SPC0JZ Removal of Synthetic Substitute from Right Knee Joint, Open Approach (ICD-10-PCS; principal; 2020-01-07 16:55)
PROC: 0SRC0J9 Replacement of Right Knee Joint with Synthetic Substitute, Cemented, Open Approach (ICD-10-PCS; 2020-01-07 16:55)
PROC: 30233N1 Transfusion of Nonautologous Red Blood Cells into Peripheral Vein, Percutaneous Approach (ICD-10-PCS; 2020-01-09)
PROC: 0W993ZZ Drainage of Right Pleural Cavity, Percutaneous Approach (ICD-10-PCS; 2020-01-12)
DX: M96.661 Fracture of femur following insertion of orthopedic implant, joint prosthesis, or bone plate, right leg (principal); J69.0 Pneumonitis due to inhalation of food and vomit; E87.1 Hypo-osmolality and hyponatremia; J98.11 Atelectasis; D62 Acute posthemorrhagic anemia; M25.00 Hemarthrosis, unspecified joint; J90 Pleural effusion, not elsewhere classified; M97.11XA Periprosthetic fracture around internal prosthetic right knee joint, initial encounter; E78.5 Hyperlipidemia, unspecified; M10.9 Gout, unspecified; E78.00 Pure hypercholesterolemia, unspecified; I11.9 Hypertensive heart disease without heart failure; M06.9 Rheumatoid arthritis, unspecified; Z20.828 Contact with and (suspected) exposure to other viral communicable diseases; K21.9 Gastro-esophageal reflux disease without esophagitis; I95.1 Orthostatic hypotension; I70.0 Atherosclerosis of aorta; Y95 Nosocomial condition; R06.03 Acute respiratory distress; E11.9 Type 2 diabetes mellitus without complications; R06.89 Other abnormalities of breathing; W19.XXXA Unspecified fall, initial encounter; Y93.89 Activity, other specified; Y92.098 Other place in other non-institutional residence as the place of occurrence of the external cause; Y99.8 Other external cause status; Z87.11 Personal history of peptic ulcer disease; Z79.01 Long term (current) use of anticoagulants; Z90.49 Acquired absence of other specified parts of digestive tract; Z90.710 Acquired absence of both cervix and uterus; Z91.81 History of falling; Z83.6 Family history of other diseases of the respiratory system; Z82.49 Family history of ischemic heart disease and other diseases of the circulatory system
CPT/HCPCS: 32554; 36415; 36430; 71045; 71250; 73560; 80048; 80053; 81001; 82945; 82948; 83615; 83986; 84155; 84157; 85025; 85027; 85610; 85730; 86850; 86900; 86901; 86923; 87040; 87071; 87088; 87205; 87426; 88112; 88184; 88185; 88305; 88311; 88341; 88342; 89051; 97039; C1713; C1776; G0378; J0330; J0456; J0690; J0692; J0696; J1650; J1885; J2001; J2020; J2175; J2370; J2405; J2704; J2710; J2765; J2795; J3010; J3490; J7030; J7050; P9016; U0003